=== PATIENT | female | born 1990 | race Caucasian/White ===

== ENCOUNTER → 2016-11-25 | Outpatient (CLI) | payer BC ==
[~2016-11-25] MED LIST: ACET50TA PO; IBUP80TA PO; VITAPRTA PO
[2016-11-25 13:27] LABS: BASO % 0.6 % (0.0-1.0); EOS # 0.1 K/mm3 (0.0-0.50); LARGE UNSTAINED CELL # 0.1 K/mm3 (0.0-0.4); LARGE UNSTAINED CELL % 1.5 % (0.0-4.0); LYMPH # 1.5 K/mm3 (1.5-6.5); LYMPH % 20.4 % (24.0-44.0); MEAN CORPUSCULAR HEMOGLOBIN 29.1 pg (27.0-33.0); MEAN CORPUSCULAR VOLUME 85.4 fl (80.0-96.0); MONO # 0.5 K/mm3 (0.0-0.8); NEUTROPHILS # 5.2 K/mm3 (1.8-7.7); NEUTROPHILS % 69.5 % (36.0-66.0); PLATELET COUNT, AUTOMATED 229 k/mm3 (150-450); RED CELL DISTRIBUTION WIDTH 12.7 % (11.5-14.5); WHITE BLOOD COUNT 7.4 K/mm3 (4.0-10.0)
[2016-11-25 13:51] LABS: HBsAg Prenatal NEGATIVE (NEGATIVE)
[2016-11-25 14:37] LABS: CONTROL LINE INT CTR LINE PRESENT; HIV SCRN NEGATIVE (NEGATIVE); HIV SCRN1 NEGATIVE (NEGATIVE)
== END ==
LOC: M LAB 11:28
PROVIDERS: ATTEND Advanced Practice Midwife
DX: Z34.81 Encounter for supervision of other normal pregnancy, first trimester (principal)

== ENCOUNTER → 2017-02-04 | Outpatient (CLI) | payer BC ==
--- NOTE | 2017-02-04 09:01 | REP ---
anatomy. Supervision of other normal . No pertinent priors. Multiple ultrasonographic images of the gravid uterus show a single living intrauterine gestation in kelby breech presentation. Doppler interrogation of the heart show a heart rate of 163 beats per minute. The placenta is anterior and evidence of low lying. The subjective amniotic fluid volume is within normal limits. The cervix measures approximately 6.3 cm in length and is closed. Evaluation of the maternal adnexal spaces showed no abnormalities. Note is made of a 4 1 x 2.6 x 4 cm sized uterine body fibroid which was identified on older prior ultrasound exams from a different . The structures visualized as unremarkable are as follows: Left sided stomach, cord insertion, three vessel umbilical cord, and urinary bladder. The remainder of the anatomical structures are suboptimally visualized. BPD 4.5 cm 19 weeks 3 days HC 17.2 cm 19 weeks 3 days AC 14.7 cm 20 weeks 0 days FL 2.9 cm 18 weeks 6 days The estimated weight is 297 grams which is at the 44th percentile for 19 week 4 day gestational age. IMPRESSION: Single living intrauterine gestation as described above with an estimated gestational age of 19 weeks 4 days via composite criteria and an estimated date of delivery of 06/27/2017. anatomical screen is incomplete. Followup in 2 weeks is recommended. Signed by Rafat Monzon DO 02/04/2017 09:02 A
== END ==
LOC: M RAD 06:49
PROVIDERS: ATTEND Advanced Practice Midwife
DX: Z34.82 Encounter for supervision of other normal pregnancy, second trimester (principal)

== ENCOUNTER → 2017-03-04 | Outpatient (CLI) | payer BC ==
--- NOTE | 2017-03-05 04:20 | REP ---
Clinical: Anatomical evaluation. Comparison: 02/04/2017 . Findings: Examination demonstrates a single live intrauterine in cephalic presentation. motion is identified by technologist. Placenta is noted anteriorly and grade zero without evidence for placenta previa or abruption. Amniotic fluid volume is normal. Cervix measures 4.3 cm in length and appears closed. No evidence for nuchal cord. Gestational age by LMP 23 weeks 4 days with AISLINN 06/27/2017 . Gestational age by current measurements 23 weeks 6 days with AISLINN 06/25/2017 . FHR equals 150 beats per minute. Estimated weight 687 grams ( 67th percentile). Anatomical assessment demonstrates normal structures including cranium, choroid plexus, cavum, cerebellum/posterior fossa, facial profile, lungs, diaphragm, stomach, cord insertion/three-vessel cord, kidneys/bladder, spine, and extremities. Impression: 1. Single live intrauterine in cephalic presentation demonstrating appropriate interval growth. Limited evaluation of the facial features, heart and cardiac ventricular outflow tracts noted. Remainder of the anatomical assessment is normal. 2. 4.5 cm posterior uterine fibroid again noted. Signed by Khoi Boothe MD 03/05/2017 04:11 A
== END ==
LOC: M RAD 07:10
PROVIDERS: ATTEND Advanced Practice Midwife
DX: Z34.82 Encounter for supervision of other normal pregnancy, second trimester (principal)

== ENCOUNTER → 2017-03-05 | Outpatient (REF) | payer BC | LOC: M LAB REF 09:43 | PROVIDERS: ATTEND Physician Assistant Medical | DX: J02.9 Acute pharyngitis, unspecified (principal) ==

== ENCOUNTER → 2017-04-10 | Outpatient (CLI) | payer BC ==
--- NOTE | 2017-04-11 03:07 | REP ---
Clinical: Anatomical evaluation. Comparison: 03/04/2017 . Findings: Examination demonstrates a single live intrauterine in transverse presentation. motion is identified by technologist. Placenta is noted anteriorly and grade zero without evidence for placenta previa or abruption. Amniotic fluid volume is normal. Cervix measures 6.6 cm in length and appears closed. No evidence for nuchal cord. Gestational age by LMP 28 weeks 6 days with AISLINN 06/27/2017 . Gestational age by current measurements 29 weeks 4 days with AISLINN 06/22/2017 . FHR equals 145 beats per minute. Amniotic fluid index equals 18.7 cm Estimated weight 1452 grams ( 62nd percentile). Anatomical assessment demonstrates normal structures including cranium, cavum, facial features (nose/lips) , four-chamber heart/ventricular outflow tracts, diaphragm, stomach, cord insertion/three-vessel cord, kidneys/bladder, spine. Limited evaluation of the facial profile. Impression: 1. Single live intrauterine in transverse lie demonstrating appropriate interval growth. 2. In conjunction with prior examination anatomical assessment is complete and within normal limits. Signed by Khoi Boothe MD 04/11/2017 02:59 A
== END ==
LOC: M RAD 06:39
PROVIDERS: ATTEND Advanced Practice Midwife
DX: Z34.82 Encounter for supervision of other normal pregnancy, second trimester (principal)

== ENCOUNTER → 2017-04-10 | Outpatient (CLI) | payer BC ==
[2017-04-10 19:05] LABS: MEAN CORPUSCULAR HEMOGLOBIN 30.1 pg (27.0-33.0); MEAN CORPUSCULAR HGB CONC 34.7 g/dl (32.0-36.5); MEAN CORPUSCULAR VOLUME 86.7 fl (80.0-96.0); RED CELL DISTRIBUTION WIDTH 13.8 % (11.5-14.5); WHITE BLOOD COUNT 8.5 K/mm3 (4.0-10.0)
== END ==
LOC: M LAB 15:47
PROVIDERS: ATTEND Advanced Practice Midwife
DX: Z34.82 Encounter for supervision of other normal pregnancy, second trimester (principal)

== ENCOUNTER → 2017-04-25 | Outpatient (CLI) | payer BC ==
[~2017-04-25] MED LIST changes: +FLON1SPR; +LABE10TAB PO; +MOTR200T44 PO; +OCEA0.654; +PRENTAB9 PO; +ZYRT10CA PO
== END ==
LOC: M LAB 08:02
PROVIDERS: ATTEND Advanced Practice Midwife
DX: Z34.82 Encounter for supervision of other normal pregnancy, second trimester (principal)

== ENCOUNTER 2017-05-04 06:18 | Outpatient (CLI) | payer BC ==
[~2017-05-04] VITALS: Ht 172.7 cm; Wt 135.0 kg
[~2017-05-04 06:18] MED LIST changes: -FLON1SPR; -LABE10TAB PO; -MOTR200T44 PO; -OCEA0.654; -PRENTAB9 PO; -ZYRT10CA PO
[2017-05-04 06:31] VITALS: BP 117/67
== END 2017-05-04 07:42 | disposition home or self-care (01) ==
LOC: M LDO 06:18
PROVIDERS: ATTEND Advanced Practice Midwife
DX: O26.893 Other specified pregnancy related conditions, third trimester (principal); Z3A.32 32 weeks gestation of pregnancy; N89.9 Noninflammatory disorder of vagina, unspecified; R10.9 Unspecified abdominal pain

== ENCOUNTER → 2017-05-15 | Outpatient (CLI) | payer BC ==
[~2017-05-15] MED LIST changes: +FLON1SPR; +LABE10TAB PO; +MOTR200T44 PO; +OCEA0.654; +PRENTAB9 PO; +ZYRT10CA PO
[2017-05-15 18:15] LABS: ALT/SGPT 17 U/L (12-78); AST/SGOT 17 U/L (15-37); BILIRUBIN,TOTAL 0.3 MG/DL (0.2-1.0); CREATININE FOR GFR 0.64 MG/DL (0.55-1.02); GLOMERULAR FILTRATION RATE > 60.0 (>60); URIC ACID 5.2 MG/DL (2.6-6.0)
== END ==
LOC: M LAB 15:46
PROVIDERS: ATTEND Specialist
DX: O13.3 Gestational [pregnancy-induced] hypertension without significant proteinuria, third trimester (principal); Z3A.00 Weeks of gestation of pregnancy not specified

== ENCOUNTER → 2017-05-21 | Outpatient (CLI) | payer BC ==
--- NOTE | 2017-05-21 19:33 | REP ---
BIOPHYSICAL PROFILE LIMITED OB ULTRASOUND: 05/21/2017: Comparison: 04/10/2017, 03/04/2017. Clinical history: Gestational hypertension without proteinuria. Evaluate growth and biophysical profile. Based on initial ultrasound she is 34 weeks 5 days, EDC 06/27/2017. Findings: Today's study shows a single intrauterine gestation in breech position. Cervix is 5 cm long. It is closed. The amniotic fluid volume is visually normal with an index measurement of 13.5 with a normal range of 8-24.9. Largest of the three fluid pockets visible was 4.8 cm. Mid cord umbilical artery Doppler shows an S/D ratio 2.07 with normal forward diastolic flow and resistive index of 0.52. biometry: BPD 8.6 cm 34 weeks 5 days HC 33.2 cm 37 weeks 6 days AC 32.1 cm 36 weeks FL 6.5 cm 33 weeks 4 days HL 5.9 cm 34 weeks 3 days Today's average ultrasound age 35 weeks 2 days, EDC 06/23/2017. Estimated weight 2676 grams or 5 pounds 14 ounces is 61st percentile for dating based on initial ultrasound. Heart rate 153 and regular. Anatomy screen was neither requested or performed. Structures visible include the cranial vault, choroid plexus, cavum septum pellucidum, lungs, diaphragm, left-sided stomach bubble, kidneys and bladder and the spine all unremarkable. Biophysical profile Breathing 2 Movement 2 Tone 2 AFV 2 Impression: 1. Single intrauterine gestation in breech position with closed 5 cm. Anterior grade zero placenta without previa abruption and visually normal amniotic fluid volume with an index of 13.5. 2. Normal mid cord Doppler and heart rate 153.3. Normal interval growth with size and dates as described above. 3. Biophysical profile score 8/8. Signed by Clyde Hill MD 05/21/2017 08:27 P
== END ==
LOC: M RAD 17:58
PROVIDERS: ATTEND Advanced Practice Midwife
DX: O13.3 Gestational [pregnancy-induced] hypertension without significant proteinuria, third trimester (principal); Z3A.35 35 weeks gestation of pregnancy

== ENCOUNTER → 2017-05-22 | Outpatient (REF) | payer BC | LOC: M LAB REF 16:58 | PROVIDERS: ATTEND Advanced Practice Midwife | DX: O99.213 Obesity complicating pregnancy, third trimester (principal); Z3A.00 Weeks of gestation of pregnancy not specified ==

== ENCOUNTER 2017-05-26 12:15 | Outpatient (CLI) | payer BC ==
[2017-05-26] VITALS (11 sets, daily range): BP systolic 121–129; BP diastolic 65–76
[~2017-05-26] VITALS: Ht 172.7 cm; Wt 146.0 kg
[~2017-05-26 12:15] MED LIST changes: -FLON1SPR; -LABE10TAB PO; -MOTR200T44 PO; -OCEA0.654; -PRENTAB9 PO; -ZYRT10CA PO
[2017-05-26 13:25] LABS: MEAN CORPUSCULAR HEMOGLOBIN 30.2 pg (27.0-33.0); MEAN CORPUSCULAR HGB CONC 34.7 g/dl (32.0-36.5); MEAN CORPUSCULAR VOLUME 87.1 fl (80.0-96.0); WHITE BLOOD COUNT 8.3 K/mm3 (4.0-10.0)
[2017-05-26 13:48] LABS: ALBUMIN 2.8 GM/DL (3.2-5.2); ALKALINE PHOSPHATASE 141 U/L (45-117); ALT/SGPT 20 U/L (12-78); ANION GAP 9 MEQ/L (8-16); BILIRUBIN,TOTAL 0.4 MG/DL (0.2-1.0); BLOOD UREA NITROGEN 8 MG/DL (7-18); CARBON DIOXIDE LEVEL 21 MEQ/L (21-32); CHLORIDE LEVEL 107 MEQ/L (98-107); CREATININE FOR GFR 0.61 MG/DL (0.55-1.02); GLOMERULAR FILTRATION RATE > 60.0 (>60); GLUCOSE, FASTING 73 MG/DL (70-105); POTASSIUM SERUM 3.9 MEQ/L (3.5-5.1); SODIUM LEVEL 137 MEQ/L (136-145); TOTAL PROTEIN 6.3 GM/DL (6.4-8.2)
[2017-05-26 14:14] LABS: AST/SGOT 20 U/L (15-37)
== END 2017-05-26 15:50 | disposition home or self-care (01) ==
LOC: M LDO 12:15
PROVIDERS: ATTEND Obstetrics & Gynecology
DX: O36.8130 Decreased fetal movements, third trimester, not applicable or unspecified (principal); O13.3 Gestational [pregnancy-induced] hypertension without significant proteinuria, third trimester; Z3A.35 35 weeks gestation of pregnancy

== ENCOUNTER 2017-06-05 07:30 | Inpatient (IN) | payer BC ==
[~2017-06-05] VITALS: Ht 172.7 cm; Wt 135.0 kg
[2017-06-05] VITALS (21 sets, daily range): BP systolic 108–146; BP diastolic 58–97
[2017-06-05] MEDS ORDERED: ZYRT10CA PO (08:24)
[2017-06-05] MEDS ORDERED: LABE10TAB PO (08:24)
[2017-06-05] MEDS ORDERED: FLON1SPR (08:24)
[2017-06-05] MEDS ORDERED: LACTATED RINGER'S 1000 ML IV STA (09:22)
[2017-06-05] MEDS: miSOPROStol 50 MCG 1/2 TAB (S0191) SL SCH ×3 (09:44→22:00)
--- NOTE | 2017-06-05 09:45 | HPE ---
DATE OF ADMISSION: 06/05/2017 CHIEF COMPLAINT: Induction of labor. HISTORY OF PRESENT ILLNESS: Patient is a 26-year-old 2, para 1-0-0-1 at 36 weeks 6 days gestation with an estimated date of delivery (AISLINN) of 06/27/2017 by last menstrual period (LMP) of 09/20/2016 confirmed by first trimester ultrasound dated 11/26/2016. She presents for induction of labor. She denies contraction, leakage of fluid, bleeding, discharge. She does feel baby move. LABS: Patient's blood type is B positive, Group B Streptococcus (GBS) positive, rubella immune, HIV negative, gonorrhea and chlamydia negative, hepatitis B antigen negative, hepatitis C nonreactive. 1 hour GTT: 142, 3 hour GTT: 86/167/133/100. Blood pressure in the office has been ranging from 128 to 160 systolic over 74 to 100 diastolic. OB ultrasound 04/10/2017 showed anterior placenta without previa or abruption. 05/22/2017 showed baby in vertex position. PAST OBSTETRICAL HISTORY: In 2014 the patient delivered a male baby weighing 7 pounds 11 ounces at 37 weeks gestation via normal spontaneous delivery complicated by retained placenta. PAST MEDICAL HISTORY: 1. Fibroid uterus. 2. Gestational hypertension. MEDICATIONS: - vitamins - labetalol 100 mg twice a day PAST SURGICAL HISTORY: 1. Dental. ALLERGIES: None. SOCIAL HISTORY: Patient is . Denies tobacco, alcohol or drugs. PHYSICAL EXAMINATION: VITALS: temperature is 98.2, pulse is 81, respiratory rate is 18, blood pressure is 140/87. ABDOMEN: Gravid. STERILE VAGINAL EXAM: 50/-3. FHR: 150 beats per minute, moderate variability, accelerations, no decelerations, category 1 tracing. BEDSIDE ULTRASOUND: Baby is vertex. ASSESSMENT/PLAN: 1. Intrauterine at 36 weeks 6 days gestation admitted for induction of labor. Reassuring maternal and status. Admit with routine labs and orders. 2. GBS positive. Penicillin has been ordered. 3. Start cervical ripening with misoprostol 50 mg sublingual. 4. Anticipate spontaneous vaginal delivery. My preceptor for this patient encounter was Dr. ePdro Luis Ho. The preceptor was physically present in the building during the encounter and was fully available. As needed, all aspects of the patient interview, examination, medical decision making process, and medical care plan development were reviewed and approved by the preceptor. The preceptor is aware and concurs with the plan as stated in the body of this note and will attest to such by his/her cosignature. JEWEL
[2017-06-05 10:37] LABS: MEAN CORPUSCULAR HEMOGLOBIN 29.7 pg (27.0-33.0); MEAN CORPUSCULAR HGB CONC 33.9 g/dl (32.0-36.5); MEAN CORPUSCULAR VOLUME 87.8 fl (80.0-96.0); RED CELL DISTRIBUTION WIDTH 13.9 % (11.5-14.5); WHITE BLOOD COUNT 6.4 K/mm3 (4.0-10.0)
[2017-06-05] MEDS ORDERED: PENICILLIN G POTASSIUM IV 5 MU in D5W MINI-BAG PLUS 100 ML IV ONE (20:00)
[2017-06-05] MEDS: OXYTOCIN DRIP 30 UNITS in APPROPRIATE DILUENT 1 EA IV SCH (20:29)
[2017-06-05] MEDS: LR 1,000 ML IV SCH (20:30)
[2017-06-06] VITALS (28 sets, daily range): BP systolic 115–149; BP diastolic 58–98
[2017-06-06] MEDS: PENICILLIN G POTASSIUM IV 2.5 MU in D5W 100 ML IV SCH ×6 (00:16→20:08)
[2017-06-06] MEDS ORDERED: PROMETHAZINE INJ 25 MG/ML VIAL (J2550) IM ONE (00:45)
[2017-06-06] MEDS ORDERED: BUTORPHANOL 2 MG/ML INJ (J0595) IV ONE ×2 (00:45→22:45)
[2017-06-06] MEDS: miSOPROStol 50 MCG 1/2 TAB (S0191) SL SCH ×3 (02:00→08:45)
[2017-06-06] MEDS: LR 1,000 ML IV SCH ×2 (04:01→15:30)
[2017-06-06] MEDS: FLUTICASONE PROP 0.05% NASAL SPRAY 16 GM (FLONASE) SCH (12:56)
[2017-06-06] MEDS: CETIRIZINE (ZyrTEC) 10 MG TAB PO SCH (12:56)
[2017-06-06] MEDS ORDERED: LR 1,000 ML IV SCH (14:31)
[2017-06-06] MEDS ORDERED: SODIUM CHLORIDE NASAL 0.65% SPRAY BTL (OCEAN) PRN (14:45)
[2017-06-06] MEDS ORDERED: OXYTOCIN DRIP 30 UNITS in APPROPRIATE DILUENT 1 EA IV SCH (14:45)
[2017-06-06] MEDS: OXYTOCIN DRIP 30 UNITS in APPROPRIATE DILUENT 1 EA IV SCH (15:25)
[2017-06-06] MEDS ORDERED: PROMETHAZINE INJ 25 MG/ML VIAL (J2550) IV ONE (22:45)
[2017-06-07] VITALS (10 sets, daily range): BP systolic 112–147; BP diastolic 52–86
[2017-06-07] MEDS ORDERED: ACETAMINOPHEN 500 MG TAB PO PRN (00:30)
[2017-06-07] MEDS ORDERED: DOCUSATE SODIUM 100 MG CAP PO PRN (00:30)
[2017-06-07] MEDS ORDERED: MOM 30ML SUSPENSION UDC PO PRN (00:30)
[2017-06-07] MEDS ORDERED: DIBUCAINE 1% OINTMENT 30GM TOP PRN (00:30)
[2017-06-07] MEDS ORDERED: METHYLERGONOVINE MALEATE 0.2 MG TAB PO PRN (00:30)
[2017-06-07] MEDS ORDERED: miSOPROStol 200 MCG TAB (S0191) PR ONE (00:30)
[2017-06-07] MEDS ORDERED: LIDOCAINE 1% MDV INJ 50 ML VIAL INFIL ONE (00:30)
[2017-06-07] MEDS ORDERED: RHOGAM 300 MCG (1500 IU) INJ (J2790) IM SCH (00:30)
[2017-06-07] MEDS ORDERED: MEASLES,MUMPS,RUBELLA VACCINE INJ (MMR-II) (90707) SC SCH (00:30)
[2017-06-07] MEDS: IBUPROFEN 800 MG TAB PO PRN ×2 (06:58→15:57)
[2017-06-07] MEDS: PRENATAL VITAMINS CHEWABLE TABLET PO SCH (08:30)
[2017-06-07] MEDS: LABETALOL 100 MG TAB PO SCH ×2 (08:31→20:47)
[2017-06-07] MEDS: FLUTICASONE PROP 0.05% NASAL SPRAY 16 GM (FLONASE) SCH (10:55)
[2017-06-07] MEDS: CETIRIZINE (ZyrTEC) 10 MG TAB PO SCH (10:55)
[2017-06-08 05:40] VITALS: BP 116/71
[2017-06-08] MEDS: FLUTICASONE PROP 0.05% NASAL SPRAY 16 GM (FLONASE) SCH (07:45)
[2017-06-08] MEDS: PRENATAL VITAMINS CHEWABLE TABLET PO SCH (07:45)
[2017-06-08] MEDS: CETIRIZINE (ZyrTEC) 10 MG TAB PO SCH (07:45)
[2017-06-08] MEDS: LABETALOL 100 MG TAB PO SCH (07:46)
[2017-06-08] MEDS ORDERED: OCEA0.654 (07:59)
[2017-06-08] MEDS ORDERED: LABE10TAB PO (07:59)
--- NOTE | 2017-06-08 08:44 | DN ---
DATE: 06/06/2017 Artificial rupture of membranes. Small amount of clear fluid at 1927 hours. Utilized IV sedation for labor coping. Spontaneous bearing down efforts. Fully dilated 2339 hours. Viable male delivered right occiput anterior (ROSA) without difficulty at 2346 hours, spontaneous respirations with stimulation, transitioned on maternal abdomen. Cord doubly clamped and cut by father of the baby once pulsations ceased. scores 9 and 9. Placenta Olivarez intact with three-vessel cord at 0007 hours. Fundus firmed with massage and IV Pitocin bolus. However, persistent trickle of blood was noted. Misoprostol 1000 mcg per rectum (FL) given with good control of bleeding. Estimated blood loss 200 mL. First-degree perineal laceration repaired with #3-0 Vicryl Rapide after infiltration with lidocaine. weight 2586 grams, 5 pounds 11 ounces. Sponge, sharp and instrument count correct. Mom and baby doing well.
[2017-06-08] MEDS ORDERED: PRENTAB9 PO (08:56)
[2017-06-08] MEDS ORDERED: ACET50TA PO (08:56)
[2017-06-08] MEDS ORDERED: MOTR200T44 PO (08:56)
== END 2017-06-08 13:00 | disposition home or self-care (01) | DRG 560 ==
LOC: M LDI 08:16 → M OBS 06-07 01:50
PROVIDERS: ADMIT Specialist; ATTEND Specialist
PROC: 3E0DXGC Introduction of Other Therapeutic Substance into Mouth and Pharynx, External Approach (ICD-10-PCS; 2017-06-05)
PROC: 10E0XZZ Delivery of Products of Conception, External Approach (ICD-10-PCS; principal; 2017-06-06)
PROC: 10907ZC Drainage of Amniotic Fluid, Therapeutic from Products of Conception, Via Natural or Artificial Opening (ICD-10-PCS; 2017-06-06)
DX: O13.4 Gestational [pregnancy-induced] hypertension without significant proteinuria, complicating childbirth (principal); O70.0 First degree perineal laceration during delivery; Z37.0 Single live birth; O99.820 Streptococcus B carrier state complicating pregnancy; Z3A.36 36 weeks gestation of pregnancy

== ENCOUNTER → 2017-09-03 | Outpatient (REF) | payer BC ==
[~2017-09-03] MED LIST changes: +FLON1SPR; +LABE10TAB PO; +MOTR200T44 PO; +OCEA0.654; +PRENTAB9 PO; +ZYRT10CA PO
== END ==
LOC: M LAB REF 13:09
PROVIDERS: ATTEND Advanced Practice Midwife
DX: Z12.4 Encounter for screening for malignant neoplasm of cervix (principal)

== ENCOUNTER → 2020-05-02 | Outpatient (REF) | payer BC ==
[~2020-05-02] MED LIST changes: -ACET50TA PO; +MAPA500T2 PO
== END ==
LOC: M SFHCWAGY 10:40
PROVIDERS: ATTEND Advanced Practice Midwife
DX: Z12.4 Encounter for screening for malignant neoplasm of cervix (principal)
CPT/HCPCS: 87624; G0123

== ENCOUNTER → 2020-05-10 | Outpatient (REF) | payer BC | LOC: M PLALAB 13:13 | PROVIDERS: ATTEND Advanced Practice Midwife | DX: O24.919 Unspecified diabetes mellitus in pregnancy, unspecified trimester (principal); O26.899 Other specified pregnancy related conditions, unspecified trimester; N92.0 Excessive and frequent menstruation with regular cycle; Z3A.00 Weeks of gestation of pregnancy not specified ==

== ENCOUNTER → 2020-05-18 | Outpatient (CLI) | payer BC ==
--- NOTE | 2020-05-18 09:47 | REP ---
Clinical: Menorrhagia. History of fibroid. Technique: Transabdominal pelvic ultrasound followed by transvaginal examination for better evaluation of the endometrium and adnexa with color Doppler evaluation of the ovaries. Findings: Heterogeneous anteverted uterus measures 9.5 x 4.7 x 6.7 cm. Endometrial complex measures 8.8 mm thickness. Posterior intramural fibroid measures 2.1 x 2.5 x 1.5 cm. IUD identified extending into the lower uterine segment and may warrant reevaluation. The bilateral ovaries are normal in appearance and vascularity without torsion. Right ovary measures 4.2 x 2.3 x 2.8 cm (RI 0.60) and includes 2.2 cm simple cyst. Left ovary measures 3.9 x 2.2 x 2.2 cm (RI 0.47). No pelvic fluid or adnexal mass lesion. Impression: 1. 2.5 cm posterior intramural fibroid. 2. IUD extending into the lower uterine segment may warrant reevaluation. Electronically Signed by Khoi Boothe MD 05/18/2020 09:38 A
== END ==
LOC: M WHC 08:27
PROVIDERS: ATTEND Advanced Practice Midwife
DX: Z12.4 Encounter for screening for malignant neoplasm of cervix (principal); Z97.5 Presence of (intrauterine) contraceptive device

== ENCOUNTER → 2020-06-29 | Outpatient (CLI) | payer BC ==
--- NOTE | 2020-07-25 07:57 | REP ---
THYROID ULTRASOUND: TECHNIQUE: Real time, fraser scale and color evaluation using linear high frequency and curved array transducers. FINDINGS: The thyroid gland is normal in contour, size, echogenicity without obvious cystic or nodular abnormalities. The right lobe measures 4.5 x 2.0 x 1.8 cm. The left lobe measures 5.1 x 1.8 x 1.3 cm. The isthmus measures approximately 3 mm in width. Palpable mass likely corresponds to normal appearing lymph nodes just lateral to the left thyroid lobe measuring 15 x 11 x 5 mm and 15 x 3 x 6 mm. IMPRESSION: 1. Normal thyroid gland. 2. Two left-sided normal-appearing lymph nodes, possibly related to the palpable mass. MTDD
== END ==
LOC: M WHC 08:03
PROVIDERS: ATTEND Registered Nurse
DX: Z86.39 Personal history of other endocrine, nutritional and metabolic disease (principal)

== ENCOUNTER → 2020-10-15 | Outpatient (CLI) | payer BC ==
[~2020-10-15] MED LIST changes: +LABE100T4 PO; -LABE10TAB PO
== END ==
LOC: M LABSMTC 10:50
PROVIDERS: ATTEND Pediatrics
DX: Z20.828 Contact with and (suspected) exposure to other viral communicable diseases (principal)

== ENCOUNTER → 2021-07-04 | Outpatient (REF) | payer BC ==
[2021-07-04 16:53] LABS: C REACTIVE PROTEIN QUANTITATIV 0.88 MG/DL (0.00-0.30); RHEUMATOID FACTOR QUANT < 10.0 IU/ML (<15.0)
[2021-07-06 10:08] LABS: ANTINUCLEAR ANTIBODIES DIRECT Negative (Negative)
== END ==
LOC: M LAB REF 16:31
PROVIDERS: ATTEND Registered Nurse
DX: M13.0 Polyarthritis, unspecified (principal)

== ENCOUNTER → 2021-08-14 | Outpatient (REF) | payer BC | LOC: M SFHCWAGY 13:23 | PROVIDERS: ATTEND Advanced Practice Midwife | DX: Z12.4 Encounter for screening for malignant neoplasm of cervix (principal) | CPT/HCPCS: 87624; G0123 ==

== ENCOUNTER → 2021-10-12 | Outpatient (CLI) | payer BC | LOC: M WHC 08:43 | PROVIDERS: ATTEND Advanced Practice Midwife | DX: Z53.9 Procedure and treatment not carried out, unspecified reason (principal); N63.20 Unspecified lump in the left breast, unspecified quadrant ==

== ENCOUNTER → 2021-10-16 | Outpatient (CLI) | payer BC ==
--- NOTE | 2021-10-16 13:19 | REP ---
INDICATION: LEFT BREAST LUMP. COMPARISON: None. TECHNIQUE: MLO and CC views bilateral breasts with tomosynthesis. Left breast ultrasound. FINDINGS: Breast parenchyma is predominantly fatty replaced with mild scattered residual fibroglandular tissue. There is no evidence of a mass or suspicious clusters of microcalcifications. No mammographic abnormality is seen at the site of the reported palpable abnormality at the medial aspect of the left breast. Focused left breast ultrasound performed medially shows no evidence of a cystic or solid nodule. The Volpara volumetric breast density pattern is A. IMPRESSION: BIRADS/ACR category 1, negative. No mass or clustered microcalcifications. There is no mammographic or sonographic evidence of a mass at the site of the reported palpable abnormality in the medial left breast. A negative mammogram and ultrasound should not deter biopsy if there is a clinically suspicious palpable mass present. This patient's Tyrer-Cuzick lifetime breast cancer risk assessment score is 13.2%. This mammogram was interpreted with the aid of an FDA-approved computer-aided detection system. The patient states she had a clinical breast exam in September 2021. The patient letter being requested is M2. RECOMMENDATION: Recommend clinical correlation and follow-up. <Electronically signed by Raleigh Maharaj > 10/16/21 [id number]
== END ==
LOC: M WHC 10:13
PROVIDERS: ATTEND Advanced Practice Midwife
DX: N63.0 Unspecified lump in unspecified breast (principal)
CPT/HCPCS: 76642; 77066; G0279

== ENCOUNTER → 2021-11-02 | Outpatient (REF) | LOC: M LABSMTC 13:46 | PROVIDERS: ATTEND Pediatrics | DX: Z20.822 Contact with and (suspected) exposure to COVID-19 (principal) ==

== ENCOUNTER → 2022-04-04 | Outpatient (CLI) | payer BC | LOC: M PLALAB 13:13 | PROVIDERS: ATTEND Advanced Practice Midwife | DX: Z53.9 Procedure and treatment not carried out, unspecified reason (principal) ==

== ENCOUNTER → 2022-08-07 | Outpatient (REF) ==
[~2022-08-07] MED LIST changes: -LABE100T4 PO; +LABE100T6 PO
== END ==
LOC: M EMP 14:16
PROVIDERS: ATTEND Family Medicine
DX: Z20.822 Contact with and (suspected) exposure to COVID-19 (principal)

== ENCOUNTER 2022-08-26 11:26 | Emergency (ER) | payer BC ==
[~2022-08-26] VITALS: Ht 172.7 cm; Wt 128.3 kg
[2022-08-26 12:20] LABS: BASO % 0.3 % (0.0-1.0); EOS # 0.6 10^3/uL (0.0-0.5); EOS % 5.7 % (0.0-3.0); HEMATOCRIT 45.9 % (36.0-47.0); HEMOGLOBIN 15.5 g/dl (12.0-15.5); LYMPH # 1.3 10^3/uL (1.5-5.0); LYMPH % 13.2 % (24.0-44.0); MEAN CORPUSCULAR HEMOGLOBIN 28.8 pg (27.0-33.0); MEAN CORPUSCULAR HGB CONC 33.8 g/dl (32.0-36.5); MEAN CORPUSCULAR VOLUME 85.2 fl (80.0-96.0); MONO # 0.6 10^3/uL (0.0-0.8); MONO % 6.2 % (2.0-8.0); NEUTROPHILS # 7.3 10^3/uL (1.5-8.5); NEUTROPHILS % 74.3 % (36.0-66.0); PLATELET COUNT, AUTOMATED 301 10^3/uL (150-450); RED BLOOD COUNT 5.39 10^6/uL (4.00-5.40); WHITE BLOOD COUNT 9.8 10^3/uL (4.0-10.0)
[2022-08-26 13:04] LABS: ALBUMIN 4.1 GM/DL (3.2-5.2); ALT/SGPT 34 U/L (12-78); BILIRUBIN,DIRECT 0.1 MG/DL (0.0-0.2); BILIRUBIN,TOTAL 0.6 MG/DL (0.2-1.0); BLOOD UREA NITROGEN 10 MG/DL (7-18); CALCIUM LEVEL 9.5 MG/DL (8.5-10.1); CARBON DIOXIDE LEVEL 24 MEQ/L (21-32); CHLORIDE LEVEL 107 MEQ/L (98-107); CREATININE FOR GFR 0.85 MG/DL (0.55-1.30); GLOMERULAR FILTRATION RATE > 60.0 (>60); GLUCOSE, FASTING 97 MG/DL (70-100); POTASSIUM SERUM 4.3 MEQ/L (3.5-5.1); SODIUM LEVEL 140 MEQ/L (136-145)
[2022-08-26 13:42] LABS: HCG, SERUM QUALITATIVE NEGATIVE (NEGATIVE)
[2022-08-26 13:52] LABS: LIPASE 178 U/L (73-393)
[2022-08-26] MEDS ORDERED: KETOROLAC 30 MG/ML 1ML VIAL IV ONE (14:35)
[2022-08-26] MEDS ORDERED: ONDANSETRON 4MG 2ML VIAL IV ONE (14:35)
[2022-08-26 14:48] VITALS: BP 130/88
[2022-08-26] MEDS ORDERED: HYDR-3713 PO (15:11)
[2022-08-26] MEDS ORDERED: TIRZ10PE (15:41)
== END 2022-08-26 15:44 | disposition home or self-care (01) ==
LOC: M ED 11:26
DX: K80.50 Calculus of bile duct without cholangitis or cholecystitis without obstruction (principal); Z79.899 Other long term (current) drug therapy
CPT/HCPCS: 76705; 80048; 80076; 83690; 84703; 85025; 96374; 99284; J1885; J2405

== ENCOUNTER → 2022-08-27 | Outpatient (CLI) | payer BC ==
[~2022-08-27] MED LIST changes: +HYDR-3713 PO; +TIRZ10PE
== END ==
LOC: M RAD 10:26
PROVIDERS: ATTEND Physician Assistant Medical
DX: M54.9 Dorsalgia, unspecified (principal)
CPT/HCPCS: 78226; A9537

== ENCOUNTER → 2022-08-30 | Outpatient (CLI) | payer BC | LOC: M RAD 11:27 | PROVIDERS: ATTEND Registered Nurse | DX: R10.11 Right upper quadrant pain (principal) | CPT/HCPCS: 78226; A9537 ==

== ENCOUNTER → 2022-10-02 | Outpatient (CLI) | payer BC | LOC: M LABSMTC 11:15 | PROVIDERS: ATTEND Anesthesiology | DX: Z01.812 Encounter for preprocedural laboratory examination (principal); Z20.822 Contact with and (suspected) exposure to COVID-19 ==

== ENCOUNTER 2022-10-07 10:11 | Day surgery (SDC) | payer BC ==
[~2022-10-07] VITALS: Ht 172.7 cm; Wt 130.2 kg
[2022-10-07] MEDS ORDERED: LR 1,000 ML IV SCH ×2 (11:05→12:55)
[2022-10-07] MEDS ORDERED: KETOROLAC 60MG 2ML VIAL As Ordered ONE (11:22)
[2022-10-07] MEDS ORDERED: MIDAZOLAM INJ 2MG/2ML VIAL (J2250 PER 1MG) As Ordered ONE (11:22)
[2022-10-07] MEDS ORDERED: LIDOCAINE 2% 100MG/5ML SDV (FOR ANES.) As Ordered ONE (11:22)
[2022-10-07] MEDS ORDERED: ONDANSETRON 4MG 2ML VIAL As Ordered ONE ×2 (11:22→13:04)
[2022-10-07] MEDS ORDERED: SUGAMMADEX SODIUM 500 MG/5 ML VIAL (BRIDION) As Ordered ONE (11:22)
[2022-10-07] MEDS ORDERED: fentaNYL 100 MCG/2 ML INJECTION As Ordered ONE ×2 (11:22→13:04)
[2022-10-07] MEDS ORDERED: ROCURONIUM BROMIDE 50 MG/5 ML VIAL As Ordered ONE ×2 (11:23→12:08)
[2022-10-07] MEDS ORDERED: propofoL 200 MG/20 ML VIAL As Ordered ONE (11:23)
[2022-10-07] MEDS ORDERED: BUPIVACAINE/EPIN 0.25% 30ML VIAL As Ordered ONE (11:52)
[2022-10-07] MEDS ORDERED: ACETAMINOPHEN 1000MG 100ML IV BAG As Ordered ONE (12:18)
[2022-10-07] MEDS ORDERED: ONDANSETRON 4MG 2ML VIAL IV PRN (12:55)
[2022-10-07] MEDS: fentaNYL 100 MCG/2 ML INJECTION IV PRN ×4 (13:11→13:27)
[2022-10-07] MEDS: oxyCODONE 5MG TAB PO PRN ×2 (13:19→13:51)
[2022-10-07] MEDS: HYDROMORPHONE HCL 0.5 MG/ 0.5 ML SYRINGE (J1170 PER 1) IV PRN ×4 (13:36→13:54)
[2022-10-07] MEDS ORDERED: NORCO, ANEXSIA 5/325MG TABLET (HYDROcodone/ACETAMINOPHEN) PO PRN (13:40)
[2022-10-07 15:00] VITALS: BP 132/77
== END 2022-10-07 15:10 | disposition home or self-care (01) ==
LOC: M SDC 10:11
PROVIDERS: ATTEND Surgery
DX: K81.1 Chronic cholecystitis (principal); F41.9 Anxiety disorder, unspecified; J30.2 Other seasonal allergic rhinitis; Z79.899 Other long term (current) drug therapy
CPT/HCPCS: 47562; 81025; 88304; J0131; J1100; J1170; J1885; J2250; J2405; J3010; S2900

== ENCOUNTER → 2022-12-03 | Outpatient (REF) | payer BC | LOC: M SFHCWAGY 13:15 | PROVIDERS: ATTEND Advanced Practice Midwife | DX: Z12.4 Encounter for screening for malignant neoplasm of cervix (principal) | CPT/HCPCS: 87624; G0123 ==

== ENCOUNTER → 2023-04-10 | Outpatient (CLI) | payer BC ==
[2023-04-10 17:36] LABS: HEMATOCRIT 36.4 % (36.0-47.0); HEMOGLOBIN 12.3 g/dl (12.0-15.5); MEAN CORPUSCULAR HEMOGLOBIN 29.6 pg (27.0-33.0); MEAN CORPUSCULAR HGB CONC 33.8 g/dl (32.0-36.5); MEAN CORPUSCULAR VOLUME 87.7 fl (80.0-96.0); PLATELET COUNT, AUTOMATED 234 10^3/uL (150-450); RED BLOOD COUNT 4.15 10^6/uL (4.00-5.40)
== END ==
LOC: M PLALAB 15:33
PROVIDERS: ATTEND Advanced Practice Midwife
DX: N92.0 Excessive and frequent menstruation with regular cycle (principal)

== ENCOUNTER → 2023-04-11 | Outpatient (CLI) | payer BC | LOC: M WHC 11:30 | PROVIDERS: ATTEND Advanced Practice Midwife | DX: N92.0 Excessive and frequent menstruation with regular cycle (principal) ==

== ENCOUNTER → 2023-08-21 | Outpatient (CLI) | payer BC ==
[2023-08-21 15:51] LABS: HEMOGLOBIN 13.3 g/dl (12.0-15.5); MEAN CORPUSCULAR HEMOGLOBIN 29.4 pg (27.0-33.0); MEAN CORPUSCULAR HGB CONC 34.1 g/dl (32.0-36.5); MEAN CORPUSCULAR VOLUME 86.1 fl (80.0-96.0); PLATELET COUNT, AUTOMATED 283 10^3/uL (150-450); RED BLOOD COUNT 4.53 10^6/uL (4.00-5.40); WHITE BLOOD COUNT 6.4 10^3/uL (4.0-10.0)
[2023-08-21 16:26] LABS: ALBUMIN 3.9 G/DL (3.2-5.2); ALKALINE PHOSPHATASE 68 U/L (46-116); ALT/SGPT 24 U/L (7.0-40); AST/SGOT 19 U/L (<34); BILIRUBIN,TOTAL 0.6 MG/DL (0.3-1.2); BLOOD UREA NITROGEN 11 MG/DL (9-23); CALCIUM LEVEL 9.2 MG/DL (8.5-10.1); CARBON DIOXIDE LEVEL 27 MMOL/L (20-31); CHLORIDE LEVEL 105 MMOL/L (98-107); GLOMERULAR FILTRATION RATE > 60.0 (>60); GLUCOSE, FASTING 92 MG/DL (60-100); POTASSIUM SERUM 4.3 MMOL/L (3.5-5.1); SODIUM LEVEL 139 MMOL/L (136-145); THYROID STIMULATING HORMONE 2.645 uIU/ML (0.55-4.78)
== END ==
LOC: M PLALAB 09:51
PROVIDERS: ATTEND Advanced Practice Midwife
DX: R53.83 Other fatigue (principal)

== ENCOUNTER → 2023-09-08 | Outpatient (REF) | LOC: M EMP 09:10 | PROVIDERS: ATTEND Family Medicine | DX: Z11.52 Encounter for screening for COVID-19 (principal) ==

== ENCOUNTER → 2023-10-15 | Outpatient (REF) | payer BC | LOC: M SFHCWAGY 16:46 | PROVIDERS: ATTEND Nurse Practitioner Family | DX: R30.0 Dysuria (principal) ==

== ENCOUNTER 2023-11-07 06:09 | Day surgery (SDC) | payer BC ==
[~2023-11-07] VITALS: Ht 172.7 cm; Wt 134.7 kg
[~2023-11-07 06:09] MED LIST changes: +RELU1TAB; +SPIR50TA4 PO; +THERTAB52 PO
[2023-11-07] MEDS ORDERED: LR 1,000 ML IV SCH ×2 (06:45→09:50)
[2023-11-07] MEDS ORDERED: MIDAZOLAM INJ 2MG/2ML VIAL As Ordered ONE (07:16)
[2023-11-07] MEDS ORDERED: fentaNYL 100 MCG/2 ML INJECTION As Ordered ONE (07:16)
[2023-11-07] MEDS ORDERED: ROCURONIUM BROMIDE 50MG/5ML VIAL As Ordered ONE (07:17)
[2023-11-07] MEDS ORDERED: propofoL 200 MG/20 ML VIAL As Ordered ONE (07:17)
[2023-11-07] MEDS ORDERED: ONDANSETRON 4MG 2ML VIAL As Ordered ONE (07:17)
[2023-11-07] MEDS ORDERED: KETOROLAC 60MG 2ML VIAL As Ordered ONE (07:17)
[2023-11-07] MEDS ORDERED: LIDOCAINE 2% 100MG/5ML SDV (FOR ANES.) As Ordered ONE (07:17)
[2023-11-07] MEDS ORDERED: SUGAMMADEX SODIUM 500 MG/5 ML VIAL (BRIDION) As Ordered ONE (07:17)
[2023-11-07] MEDS ORDERED: ceFAZolin SOD 1 GM in D5W MINI-BAG PLUS 50 ML IV ONE (07:20)
[2023-11-07] MEDS ORDERED: ceFAZolin SOD 2 GM in IV 1 EA IV ONE (07:20)
[2023-11-07 07:27] LABS: HEMATOCRIT 39.1 % (36.0-47.0); HEMOGLOBIN 13.3 g/dl (12.0-15.5); MEAN CORPUSCULAR VOLUME 85.2 fl (80.0-96.0); PLATELET COUNT, AUTOMATED 252 10^3/uL (150-450); RED BLOOD COUNT 4.59 10^6/uL (4.00-5.40); WHITE BLOOD COUNT 5.6 10^3/uL (4.0-10.0)
[2023-11-07] MEDS ORDERED: ACETAMINOPHEN 1000MG 100ML IV BAG As Ordered ONE (08:06)
[2023-11-07] MEDS ORDERED: ePHEDrine SULFATE 25 MG/5 ML(5MG/ML) SYRINGE As Ordered ONE (08:07)
[2023-11-07] MEDS ORDERED: HYDROmorphone HCL 2MG/ML 1ML VIAL As Ordered ONE (09:21)
[2023-11-07] MEDS ORDERED: oxyCODONE 5MG TAB PO PRN (09:50)
[2023-11-07] MEDS ORDERED: fentaNYL 100 MCG/2 ML INJECTION IV PRN (09:50)
[2023-11-07] MEDS ORDERED: ONDANSETRON 4MG 2ML VIAL IV PRN (09:50)
[2023-11-07] MEDS ORDERED: HYDROMORPHONE HCL 0.5 MG/ 0.5 ML SYRINGE IV PRN (09:50)
[2023-11-07] MEDS ORDERED: OXYMETAZOLINE 0.05% NASAL SPRAY (AFRIN) As Ordered ONE (11:02)
[2023-11-07] MEDS ORDERED: LIDOCAINE W/EPINEPHRINE 1% 20ML VIAL As Ordered ONE (11:02)
[2023-11-07 11:36] VITALS: BP 128/71; TEMP 98; O2SAT 96
== END 2023-11-07 11:57 | disposition home or self-care (01) ==
LOC: M SDC 06:09
PROVIDERS: ATTEND Obstetrics & Gynecology
DX: N93.9 Abnormal uterine and vaginal bleeding, unspecified (principal); D25.9 Leiomyoma of uterus, unspecified; K21.9 Gastro-esophageal reflux disease without esophagitis; G43.909 Migraine, unspecified, not intractable, without status migrainosus; F41.9 Anxiety disorder, unspecified; Z79.899 Other long term (current) drug therapy
CPT/HCPCS: 36415; 58571; 81025; 85027; 86850; 86900; 86901; 88307; J0131; J0665; J0690; J1100; J1170; J1885; J2250; J2405; J3010; S2900

== ENCOUNTER → 2023-11-14 | Outpatient (REF) | payer BC ==
[2023-11-14 18:56] LABS: PERCENT SATURATION 27.5 % (13.2-45.0)
[2023-11-14 18:57] LABS: FERRITIN 53.6 NG/ML (7.3-270.7)
== END ==
LOC: M LAB REF 17:33
PROVIDERS: ATTEND Nurse Practitioner Family
DX: R53.83 Other fatigue (principal)

== ENCOUNTER → 2024-09-17 | Outpatient (REF) | payer BC ==
[2024-09-21 03:08] LABS: TISSUE TRANSGLUTAMINASE IgA < 1.0 U/mL (<15.0)
== END ==
LOC: M LAB REF 12:34
PROVIDERS: ATTEND Nurse Practitioner Family
DX: R19.7 Diarrhea, unspecified (principal)

== ENCOUNTER → 2024-09-27 | Outpatient (CLI) | payer BC | LOC: M PLAIMG 09-20 13:56 | PROVIDERS: ATTEND Nurse Practitioner Family | DX: M19.90 Unspecified osteoarthritis, unspecified site (principal) ==

== ENCOUNTER → 2025-08-30 | Outpatient (RCR) ==
[~2025-08-30] MED LIST changes: -LABE100T6 PO; +LABE100T91 PO
== END ==
LOC: M EMPSSV 08-10 13:32
PROVIDERS: ATTEND Family Medicine
DX: Z20.828 Contact with and (suspected) exposure to other viral communicable diseases (principal)

== ENCOUNTER → 2025-10-03 | Outpatient (REF) | payer BC ==
[2025-10-03 10:38] LABS: TESTOSTERONE 22.0 NG/DL (14-76)
[2025-10-03 10:39] LABS: ESTRADIOL 130.9 PG/ML; FREE T4 1.23 NG/DL (0.89-1.76); PROGESTERONE 4.98 NG/ML
[2025-10-05 02:18] LABS: DEHYDROEPIANDROSTERONE SULFATE 87.0 mcg/dL (19-237)
[2025-10-05 10:33] LABS: INSULIN LEVEL 22.4 uIU/mL (<=18.4)
== END ==
LOC: M PLALAB 10:00
PROVIDERS: ATTEND Advanced Practice Midwife
DX: R63.5 Abnormal weight gain (principal)